=== PATIENT | male | born 1950 | race Caucasian/White ===

== ENCOUNTER 2018-06-08 17:09 | Emergency (ER) | payer OTHER ==
[~2018-06-08] VITALS: Ht 181.6 cm; Wt 74.4 kg
[~2018-06-08 17:09] MED LIST: AMOXICILLIN500 M3 PO; BACTRIM DS TAB1 EACH PO
[2018-06-08 17:15] VITALS: BP 159/89
--- NOTE | 2018-06-08 18:07 | RADIOLOGY REPORT ---
EXAMINATION: XR CHEST CLINICAL INFORMATION: Chest pain for 3 hours COMPARISON: None TECHNIQUE: 2 views of the chest were obtained. 3 images. FINDINGS: Cardiac and mediastinal silhouettes are normal in appearance. The lungs and pleural spaces are clear. No acute osseous abnormality is seen. IMPRESSION: Unremarkable examination.
--- NOTE | 2018-06-08 18:12 | RADIOLOGY REPORT ---
EXAMINATION: XR FINGER, RIGHT CLINICAL INFORMATION: Right third digit bruising and swelling. COMPARISON: None TECHNIQUE: 3 views of the right third digit. FINDINGS: Mild soft tissue swelling. Normal alignment. No fracture or dislocation or acute osseous abnormality is seen. IMPRESSION: Soft tissue swelling. No fracture or dislocation is identified. No acute findings.
--- NOTE | 2018-06-08 18:35 | ED GENERAL ADULT ---
History of Present Illness General Chief Complaint: Hand or Wrist Injury Stated Complaint: RIGHT HAND 4TH DIGET SWOLLEN, BRUISED Source: patient Exam Limitations: no limitations Vital Signs & Intake/Output Vital Signs & Intake/Output Vital Signs Date Time Temp Pulse Resp B/P B/P Pulse O2 O2 Flow FiO2 Mean Ox Delivery Rate 06/08 1806 Room Air 06/08 1715 97.9 82 18 159/89 98 Room Air Allergies Coded Allergies: No Known Allergies (03/29/16) Reconcile Medications Amoxicillin 500 MG TABLET 1 TAB PO TID cellulitis Cephalexin (Keflex) 500 MG CAPSULE 1 CAP PO 4 TIMES/DAY felon Sulfamethoxazole/Trimethoprim (Bactrim Ds Tablet) 1 EACH TABLET 1 TAB PO BID cellulitis Sulfamethoxazole/Trimethoprim (Bactrim Ds Tablet) 800 MG-160 MG TABLET 1 TAB PO BID felon Triage Note: 68 YEAR OLD MALE AMBULATED TO TRIAGE, STATES THAT LAST PM HE HAD AN EPISODE OF L SIDE CP FOR ABOUT 3 HOURS AND IT WENT AWAY, DENIES CP AT THIS TIME. STATES THAT WHEN HE WOKE THIS AM HE NOTED THAT HIS R RING FINGER TIP WAS BRUISED AND SWOLLEN, DENIES INJURY Triage Nurses Notes Reviewed? yes Onset: Abrupt Duration: hour(s): Timing: constant HPI: 68 y/o male with a h/o HTN, diabetes, and celiac's presenting s/p episode of palpitations last night. Reports that he felt like his heart was racing for several hours. He had the sensation when he went to sleep last night, but when he woke up the symptoms were gone. He has not had recurrence of the symptoms since. He denies any associated chest pain, shortness of breath, nausea, vomiting, diaphoresis, lightheadedness, dizziness. Triage note mentions chest pain, but the patient is adamant that he did not have any chest pain present. When he woke up this morning he noticed that his right fourth digit had pain, swelling, and ecchymosis to the distal aspect. Denies any known trauma. Denies numbness or paresthesias. Past History Travel History Traveled to [place] past 21 day No Medical History Any Pertinent Medical History? see below for history Neurological: NONE EENT: NONE Cardiovascular: HYPERTENSION Respiratory: NONE Gastrointestinal: NONE Hepatic: NONE Renal: NONE Musculoskeletal: NONE Psychiatric: NONE Endocrine: NIDDM Cancer(s): NONE HAND I TUBE BENDER/Reproductive: NONE Surgical History Surgical History: non-contributory Psychosocial History What is your primary language Italian Tobacco Use: Never used ETOH Use: denies use Illicit Drug Use: denies illicit drug use Family History Hx Contributory? No Review of Systems Review of Systems Constitutional: Reports: no symptoms. EENTM: Reports: no symptoms. Respiratory: Reports: no symptoms. Cardiovascular: Reports: see HPI. GI: Reports: no symptoms. Genitourinary: Reports: no symptoms. Musculoskeletal: Reports: see HPI. Skin: Reports: no symptoms. Neurological/Psychological: Reports: no symptoms. Hematologic/Endocrine: Reports: no symptoms. Immunologic/Allergic: Reports: no symptoms. All Other Systems: Reviewed and Negative Physical Exam Physical Exam General Appearance: well developed/nourished, no apparent distress, alert, awake Comments: Gen.: Well-nourished, well-developed, no acute distress. Head: Normocephalic, atraumatic. Eyes: Normal inspection bilaterally Ears: Normal inspection bilaterally Nose: Normal inspection Neck: Normal inspection Lungs: clear to auscultation bilaterally, normnal breath sounds Heart: regular rate and rhythm Abdomen: soft and non-tender HAND: Right hand Inspection: Edema, erythema, and ecchymosis to the palmar surface of the distal phalanx on the right fourth digit Palpation: Diffuse tenderness at the distal right fourth digit ROM: Unrestricted range of motion at all MCPs/PIPs/DIPs and IP joint Sensation: intact to median/radial/ulnar nerves Motor strength: 5/5 with digit flexion, extension, interosseous strength, and hand painting manager strength Cap refill: <2 seconds Pulse: 2+ radial pulse Neurologic: alert and oriented x3, steady gait Skin: warm and dry Psychiatric: Normal mood and affect, no apparent delusions or hallucinations, behavior appropriate Core Measures ACS in differential dx? No CVA/TIA Diagnosis: No Sepsis Present: No Sepsis Focused Exam Completed? No Progress Differential Diagnoses I considered the following diagnoses in my evaluation of the patient: [Felon versus cellulitis versus abscess versus fracture. Cardiac arrhythmia versus thyroid imbalance versus infection versus metabolic derangement versus ACS.] Plan of Care: Orders Procedure Date/time Status Add-on Test (ER Only) 06/08 1859 Active TSH REFLEX 06/08 180 Complete MAGNESIUM 06/08 180 Complete TROPONIN LEVEL 06/08 1717 Complete COMPREHENSIVE METABOLIC PANEL 06/08 1717 Complete CBC WITHOUT DIFFERENTIAL 06/08 1717 Complete EKG 06/08 1717 Active Laboratory Tests 06/08/18 1803: Anion Gap 7, Estimated GFR > 60, BUN/Creatinine Ratio 11.0, Glucose 84, Calcium 9.4, Magnesium 1.7, Total Bilirubin 0.7, AST 19, ALT 35, Alkaline Phosphatase 96 , Troponin I < 0.01, Total Protein 5.9 L, Albumin 3.9, Globulin 2.0, Albumin/ Globulin Ratio 2.0, TSH &T3 &Free T4 Intrp 0.841, CBC w Diff NO MAN DIFF REQ, RBC 4.05 L, MCV 86.3, MCH 29.5, MCHC 34.1, RDW 12.3, MPV 7.2 L, Gran % 84.1 H , Lymphocytes % 10.5 L, Monocytes % 4.9, Eosinophils % 0.3, Basophils % 0.2, Absolute Granulocytes 6.9 H, Absolute Lymphocytes 0.9 L, Absolute Monocytes 0.4, Absolute Eosinophils 0, Absolute Basophils 0 EKG was nonischemic, troponin negative. Labs showed mild anemia, no prior for comparison. He had a normal WBC, but with a left shift. Patient had left the emergency department prior to his workup being completed, and prior to attending evaluation. He left prior to any risks of leaving AGAINST MEDICAL ADVICE being explained to him. Prescriptions for Bactrim and Keflex were sent to his pharmacy to treat for Carmen. The patient was discussed with the ED attending, and the ED attending was made aware that the patient had walked out of the emergency department. Initial ED EKG: normal sinus rhythm, no ST T wave changes Departure Departure Disposition: LEFT AGAINST MEDICAL ADVICE Condition: Stable Clinical Impression Primary Impression: Finger pain, right Secondary Impressions: Palpitations Referrals: Stewart VALENTINE,Blayne Ac (PCP/Family) Departure Forms: Customer Survey General Discharge Information Prescriptions: Current Visit Scripts Cephalexin (Keflex) 1 CAP PO 4 TIMES/DAY #40 CAP Sulfamethoxazole/Trimethoprim (Bactrim Ds Tablet) 1 TAB PO BID #20 TAB Critical Care Note Critical Care Note Critical Care Time: non-applicable
[2018-06-08 18:54] LABS: ABSOLUTE BASOPHIL COUNT 0 /CUMM (0.0-0.2); ABSOLUTE EOSINOPHIL COUNT 0 /CUMM (0.0-0.7); ABSOLUTE GRANULOCYTE CT 6.9 /CUMM (1.4-6.5); ABSOLUTE LYMPH COUNT 0.9 /CUMM (1.2-3.4); ABSOLUTE MONOCYTE COUNT 0.4 /CUMM (0.10-0.60); BASOPHIL % 0.2 % (0.0-2.0); EOSINOPHIL % 0.3 % (0-5); MEAN CORPUSCULAR HGB 29.5 PG (27.0-31.0); MEAN CORPUSCULAR HGB CONC 34.1 G/DL (33.0-37.0); MEAN CORPUSCULAR VOLUME 86.3 FL (80.0-94.0); MEAN PLATELET VOLUME 7.2 FL (7.4-10.4); PLATELET COUNT 271 /CUMM (130-400); RBC DISTRIBUTION WIDTH 12.3 % (11.5-14.5); RED BLOOD CELL CT 4.05 /CUMM (4.70-6.10); WHITE BLOOD CELL COUNT 8.3 /CUMM (4.8-10.8)
[2018-06-08] MEDS ORDERED: KEFLEX500 M1 PO (19:02)
[2018-06-08] MEDS ORDERED: BACTRIM DS TAB1 EACH PO (19:11)
[2018-06-08 19:23] LABS: GRANULOCYTE % 84.1 % (42.2-75.2)
== END 2018-06-08 19:46 | disposition left against medical advice (07) ==
LOC: ERH 17:09
PROVIDERS: Physician Assistant Medical
DX: M79.644 Pain in right finger(s) (principal); R00.2 Palpitations; I10 Essential (primary) hypertension; E11.9 Type 2 diabetes mellitus without complications
CPT/HCPCS: 71046; 73140-RT; 93005; 93010